=== PATIENT | female | born 1960 | race Caucasian/White ===

== ENCOUNTER 2022-10-02 10:51 | Outpatient (CLI) | payer OTHER, SELFPAY ==
[2022-10-02 22:04] LABS: Albumin* 4.4 g/dL (3.3-5.0)
[2022-10-02 22:05] LABS: Chloride* 98 mmol/L (96-114); Potassium* 4.9 mmol/L (3.6-5.1); Sodium* 135 mmol/L (135-149)
[2022-10-02 22:07] LABS: Alkaline Phosphatase* 69 U/L (40-150); Aspartate Amino Transferase* 36 U/L (12-35); Bilirubin Total* 0.5 mg/dL (0.1-1.5); Blood Urea Nitrogen* 8 mg/dL (7-30); Carbon Dioxide* 30 mmol/L (20-32); Cholesterol* 206 mg/dL (90-199); Creatinine* 0.6 mg/dL (0.5-1.5); Estimated Glomerular Filt Rate 101 ml/min; Total Protein* 6.8 g/dL (6.0-8.3)
[2022-10-02 22:08] LABS: Alanine Aminotransferase* 35 U/L (4-35); Calcium* 9.1 mg/dL (8.4-10.6); Glucose* 85 mg/dL (60-115); HDL Cholesterol* 56 mg/dL (>=50); LDL Cholesterol Calculated 117 mg/dL (<100); Triglycerides* 164 mg/dL (40-149)
== END 2022-10-02 10:52 | disposition home or self-care (01) ==
PROVIDERS: Visit Provider Physician Assistant Medical
DX: Z00.00 Encounter for general adult medical examination without abnormal findings (principal); Z13.6 Encounter for screening for cardiovascular disorders
CPT/HCPCS: 80053; 80061

== ENCOUNTER 2023-10-29 13:08 | Outpatient (CLI) | payer OTHER, SELFPAY | END 2023-10-29 13:09 | disposition home or self-care (01) | PROVIDERS: PCP Physician Assistant Medical; Visit Provider Physician Assistant Medical | DX: E03.9 Hypothyroidism, unspecified (principal); D64.9 Anemia, unspecified; R79.89 Other specified abnormal findings of blood chemistry; Z13.1 Encounter for screening for diabetes mellitus | CPT/HCPCS: 80053; 80061; 82306; 84443; 86703; 86803 ==

== ENCOUNTER 2024-01-22 10:03 | Outpatient (CLI) | payer OTHER, SELFPAY ==
--- NOTE | 2024-01-22 10:15 | MM_ITS ---
Patient: DOTTIE NICOLE Facility:?[facility] Patient ID:?[id number] Site Patient ID:?[id number]. Site :?[id number] Study:?XRay-Breast Bilateral 3D W/CAD-01/22/2024 10:55:54 AM Ordering Physician:Mona Final Report: BILATERAL SCREENING MAMMOGRAM WITH COMPUTER-AIDED DETECTION AND TOMOSYNTHESIS TECHNIQUE: CC and MLO views were obtained. These mammographic images have been obtained using full-field digital technique. These mammographic images were interpreted with the benefit of computer-aided detection. Breast Tomosynthesis was used in this interpretation. COMPARISON FILM: 10/24/18, 12/10/14, 11/24/13. FINDINGS: There are scattered areas of fibroglandular density. IMPRESSION: There is no radiographic evidence for malignancy. ASSESSMENT: BI-RADS Category 1: Negative RECOMMENDATION: Routine screening mammogram in 1 year. A lay language report of this examination will be provided to the patient. José Miguel Rodriguez M.D. Diagnostic Radiologist [email or web address] DSM/sp R& Transcribed: 3:25 p.m. SP/Dictated by: José Miguel Rodriguez MD @ 01/22/2024 11:25:00 AM Signed by:?José Miguel Rodriguez MD @01/23/2024 5:28:04 AM (Electronic Signature)
== END 2024-01-22 10:04 | disposition home or self-care (01) ==
LOC: MAMMO 10:04
PROVIDERS: PCP Physician Assistant Medical; Visit Provider Physician Assistant Medical
DX: Z12.31 Encounter for screening mammogram for malignant neoplasm of breast (principal)
CPT/HCPCS: 77063; 77067

== ENCOUNTER 2025-01-21 13:26 | Outpatient (CLI) | payer OTHER, SELFPAY ==
[2025-01-21 23:48] LABS: Chlamydia DNA Amplified* NOT DETECTED (No Detected); GC DNA Amplified* NOT DETECTED (No Detected)
[2025-01-23 19:19] LABS: HPV Source Cervix; HPV, High Risk by TMA Not Detected
== END 2025-01-21 13:27 | disposition home or self-care (01) ==
PROVIDERS: PCP Physician Assistant Medical; Visit Provider Physician Assistant Medical
DX: E03.9 Hypothyroidism, unspecified (principal); R82.90 Unspecified abnormal findings in urine; Z78.0 Asymptomatic menopausal state; Z13.228 Encounter for screening for other metabolic disorders; Z13.220 Encounter for screening for lipoid disorders; Z13.21 Encounter for screening for nutritional disorder; Z11.4 Encounter for screening for human immunodeficiency virus [HIV]; Z11.59 Encounter for screening for other viral diseases; Z11.3 Encounter for screening for infections with a predominantly sexual mode of transmission; Z11.51 Encounter for screening for human papillomavirus (HPV); Z12.4 Encounter for screening for malignant neoplasm of cervix
CPT/HCPCS: 80053; 80061; 82306; 84443; 86703; 86803; 87086; 87491; 87591; 87624; 87625; 88141; 88142

== ENCOUNTER 2025-04-15 13:46 | Outpatient (CLI) | payer OTHER, SELFPAY ==
--- NOTE | 2025-04-15 14:00 | CRLHL7_ITS ---
For Patients: As a result of the Century Cures Act, medical imaging exams and procedure reports are released immediately into your electronic medical record. You may view this report before your referring provider. If you have questions, please contact your health care provider. DXA BONE MINERAL DENSITY STUDY Reason for exam: Encounter for screening for osteoporosis. Current height (in): 63.5. Weight (lb): 135. Menopause age: Not provided. Ethnicity: White. 1. Have you had a previous hip or vertebral fracture? No. 2. Have you had any fractures during your adult life which did not result from significant trauma (e.g., auto accident)? No. 3. Did either of your parents have a hip fracture? No. 4. Do you smoke? No. 5. Have you ever taken Glucocorticoids? No. 6. Do you have rheumatoid arthritis? No. 7. Do you have secondary osteoporosis? No. 8. Do you drink 3 or more alcoholic drinks per day? No. 9. Are you being treated for osteoporosis? No. 10. Have you ever taken any of the following medications: Actonel, Evista, Fosamax, Miacalcin, Reclast, Boniva, Forteo, HRT (i.e. estrogen/hormone therapy), Protelos, Prolia, Vitamin D, Calcium, other ??? please specify. ANSWER: Yes, Vitamin D and Calcium. 11. Do you have any of the following medical conditions: Anorexia or bulimia, asthma or emphysema, end stage renal disease, hyperparathyroidism, any seizure disorders, cancer, inflammatory bowel diseases, hysterectomy, other ??? please specify. ANSWER: No. 12. What was your maximum height (inches)? 63.5. 13. Do you perform weight bearing exercise regularly? Yes. 14. Do you regularly consume dairy products? Yes. 15. Do you drink caffeinated beverages? No. 16. At what age did your period start? 13. 17. Are you premenopausal? No. 18. How many full term pregnancies have you had? 3. 19. Have you ever missed your period for more than 6 months in a row (not including or menopause)? No. TECHNIQUE: Bone mineral density study was performed using the [email or web address]. FINDINGS: The results of the study expressed as bone mineral density (BMD) are as follows: Lumbar spine L1 to L4: BMD: 0.943 g/cm2. T-score: -0.9. Z-score: 0.9. Neck Left: BMD: 0.743 g/cm2. T-score: -1.0. Z-score: 0.6. Right: BMD: 0.734 g/cm2. T-score: -1.0 . Z-score: 0.5. Total Left: BMD: 0.887 g/cm2. T-score: -0.4 . Z-score: 0.8. Right: BMD: 0.924 g/cm2. T-score: -0.1. Z-score: 1.1. IMPRESSION: Normal bone density. *Comparison exams done prior to 04/2020 were performed on different unit, [facility]. José Miguel Rodriguez M.D. Diagnostic Radiologist [email or web address] SP/Dictated by: José Miguel Rodriguez MD @ 04/15/2025 3:50:00 PM (Electronically Signed)
== END 2025-04-15 13:47 | disposition home or self-care (01) ==
PROVIDERS: PCP Physician Assistant Medical; Visit Provider Physician Assistant Medical
DX: Z13.820 Encounter for screening for osteoporosis (principal); Z78.0 Asymptomatic menopausal state
CPT/HCPCS: 77080

== ENCOUNTER 2025-10-21 12:17 | Outpatient (CLI) | payer OTHER, SELFPAY | END 2025-10-21 12:18 | disposition home or self-care (01) | PROVIDERS: PCP Physician Assistant Medical; Visit Provider Physician Assistant Medical | DX: Z00.00 Encounter for general adult medical examination without abnormal findings (principal) | CPT/HCPCS: 80048; 80061; 84443 ==